=== PATIENT | male | born 1940 | race Caucasian/White ===

== ENCOUNTER 2017-01-04 06:40 | Day surgery (SDC) ==
[2017-01-04] MEDS ORDERED: LIDOCAINE 1% 20 ML MDV ID ONE (07:40)
[2017-01-04] MEDS ORDERED: VERSED ONE (09:21)
[2017-01-04] MEDS ORDERED: DIPRIVAN 20 ML VIAL IVP ONE (09:21)
[2017-01-04 10:45] VITALS: BP 123/75; TEMP 98.2
--- NOTE | 2017-01-05 09:44 | OP ---
INDICATIONS FOR PROCEDURE: 76-year-old gentleman presents for screening colonoscopy. MEDICATIONS: SEE ANESTHESIA NOTES. PROCEDURE: COLONOSCOPY, SNARE POLYPECTOMY. REPORT: The risks, benefits, alternatives and limitations were discussed in detail with the patient. Informed consent was obtained. After adequate sedation was achieved, a digital rectal exam revealed good tone, no masses. The colonoscope was introduced into the rectum and advanced under direct visual guidance to the cecum. The cecum was identified by the appendiceal orifice and IC valve. In the cecal area there were two polyps; one was about 6 mm and slightly raised and the other was about 7 to 8 mm and slightly raised, both removed by snare techinque and placed in the same pathology jar. I then slowly withdrew the scope in a circumferential manner examining the mucosa quite carefully. I looked on the proximal and distal side of folds and flexures as best as possible and I was able to retroflex the scope in the right colon and left colon to increase visualization. Scattered throughout the transverse colon there were three polyps ranging in size from 3 mm to 5 mm. These polyps were all removed by snare technique. The two smaller ones were destroyed. The slightly larger one was retrieved. The remaining colon appeared unremarkable including on retroflex view of the anal canal. The prep was good. The withdrawal time was 18 minutes and 19 seconds. The patient tolerated the procedure well with stable vital signs and pulse oximetry throughout. IMPRESSION: 1. FIVE (5) POLYPS REMOVED OR DESTROYED ABOVE. RECOMMENDATIONS: 1. High fiber diet. 2. Office visit as needed. 3. Await polyp pathology. If everything is benign, recommend repeat colonoscopy examination again in 3 years, sooner if signs or symptoms indicate otherwise. CC: DR. KIARA SEVILLA
== END 2017-01-04 11:00 | disposition home or self-care (01) ==
LOC: SURG 06:40
PROVIDERS: ATTEND Internal Medicine Gastroenterology
DX: Z12.11 Encounter for screening for malignant neoplasm of colon (principal); D12.0 Benign neoplasm of cecum; D12.3 Benign neoplasm of transverse colon; K63.5 Polyp of colon

== ENCOUNTER 2017-02-22 12:18 | Outpatient (CLI) ==
--- NOTE | 2017-02-22 13:01 | US ---
Exam: Jha-scale and color Doppler ultrasonographic evaluation of the right upper quadrant. Comparison: None available. Reason for exam: Elevated liver enzymes. FINDINGS: The liver measures approximately 11.26 cm in length and the 19.4 cm in the AP dimension wi th a hyperechoic echotexture. There is normal antegrade portal venous flow without intrahepatic ducta l dilatation or perihepatic free fluid. The common bile duct measures up to 0.65 cm. The gallbladder has been removed. The pancreas is not well seen secondary to overlying bowel gas. The right kidney measures 10.52 cm with a normal appearing echotexture, no hydronephrosis, and no nep hrolithiasis. Impression: Prominent appearing liver with a hyperechoic echotexture.
== END 2017-02-22 12:19 | disposition home or self-care (01) ==
LOC: RAD 12:18
PROVIDERS: ATTEND Family Medicine
DX: R74.8 Abnormal levels of other serum enzymes (principal)

== ENCOUNTER 2023-12-22 06:40 | Inpatient (IN) ==
--- NOTE | 2023-12-22 06:57 | ED.PDOC ---
General <TONIO RAMIREZ MD - Last Filed: 12/26/23 07:35> ED Provider: Dr. TONIO RAMIREZ MD Chief Complaint: Sore Throat Stated Complaint: Patient is an 83-year-old male that reported to the emergency department with a productive cough and a sore throat. Patient stated this has been going on for the past 2 days. Patient denies being around any other sick contacts other than his who has similar symptoms. Patient denied having any fever. Patient states that eating and drinking makes his throat worse. Patient denies anything making it better. Patient denies any shortness of breath, chest pain, nausea, vomiting, diarrhea, dizziness, syncope, or any other acute symptoms not currently mentioned in the HPI. Patient is alert and oriented to person, place, and time. Patient's vital signs are stable. Time Seen by Provider: 12/22/23 06:42 Mode of Arrival: Walk-In Information Source: Patient Exam Limitations: No limitations Primary Care Provider: ALISHA CRAIG Nursing and Triage Documentation Reviewed and Agree: Yes Does Patient Take Opioids?: No Is Patient Opioid Naive?: No What is Opioid Naive?: *Opioid Naive implies the patient is not already taking opioids or not chronically receiving opioids on a daily basis. *PRN dosing is not "usually" associated with tolerance. *Patients are at higher risk of over-sedation and aspiration. Is Patient Opioid Tolerant?: No What is Opioid Tolerant?: *Opioid Tolerance implies less than the expected response to an opioid. *Acquired tolerance is defined by the patient taking 60mg of oral morphine daily (or equianalgesic dose of another opioid) for 1 week or more. *Often associated with chronic pain. *May take more than usual dose to achieve desired pain control. Review of Systems <TONIO RAMIREZ MD - Last Filed: 12/26/23 07:35> Review Of Systems Constitutional: Reports No symptoms Eyes: Reports No symptoms Ears, Nose, Mouth, Throat: Reports Throat pain Respiratory: Reports Cough Cardiac: Reports No symptoms GI: Reports No symptoms : Reports No symptoms Musculoskeletal: Reports No symptoms Skin: Reports No symptoms Neurological: Reports No symptoms Endocrine: Reports No symptoms Hematologic/Lymphatic: Reports No symptoms All Other Systems: Reviewed and Negative PFSH <TONIO RAMIRZE MD - Last Filed: 12/26/23 07:35> Medical History Cataract H26.9 - Unspecified cataract (ICD-10) High prostate specific antigen (PSA) R97.20 - Elevated prostate specific antigen [PSA] (ICD-10) GERD (gastroesophageal reflux disease) K21.9 - Gastro-esophageal reflux disease without esophagitis (ICD-10) Kidney disease N28.9 - Disorder of kidney and ureter, unspecified (ICD-10) Hypothyroid E03.9 - Hypothyroidism, unspecified (ICD-10) Hypertension I10 - Essential (primary) hypertension (ICD-10) Family History FATHER Hypertension Mother Heart problem Social History Smoking and tobacco status: Former smoker Surgical History History of cholecystectomy Z98.89 - Other specified postprocedural states (ICD-10) Physical Exam <TONIO RAMIREZ MD - Last Filed: 12/26/23 07:35> Physical Exam Appearance: Reports Ill-appearing Ill-appearing: Mild Pain Distress: None Eyes: Reports OLIMPIA, EOMI and Conjunctiva clear ENT: Reports Nose normal and Erythema (Patient has erythematous posterior pharynx. No exudates noted.) Neck: Supple Respiratory: Reports Airway patent, Breath sounds equal, Respirations nonlabored and Crackles (Patient had crackles auscultated in the right lower lobe posteriorly.) Cardiovascular: Reports Pulses normal, No rub, No murmur and Tachycardia GI/: Reports Soft, Nontender, No masses, Bowel sounds normal and No Organomegaly Musculoskeletal: Reports Normal strength and ROM intact Skin: Reports Warm, Dry and Normal color Neurological: Reports Sensation intact, Motor intact, Cranial nerves intact, Alert and Oriented Psychiatric: Reports Affect appropriate and Mood appropriate Critical Care Note <TRINI MAR MD - Last Filed: 12/22/23 10:48> Critical Care Note Total Critical Care Time (mins): 30 Course <TONIO RAMIREZ MD - Last Filed: 12/26/23 07:35> Course 12/24/23 05:07 12/24/23 05:07 Orders, Labs, Meds: Lab Review 12/22/23 12/22/23 12/22/23 06:45 06:52 07:11 WBC 13.97 H RBC 4.98 Hgb 14.9 Hct 45.2 MCV 90.8 MCH 29.9 MCHC 33.0 RDW Coeff of Nixon 13.0 Plt Count 141 Immature Gran % (Auto) 0.4 Neut % (Auto) 74.9 Lymph % (Auto) 8.3 L [place] % (Auto) 16.2 H Eos % (Auto) 0.0 Baso % (Auto) 0.2 Neut # (Auto) 10.5 H Lymph # (Auto) 1.2 [place] # (Auto) 2.3 H Eos # (Auto) 0.0 Baso # (Auto) 0.0 Immature Gran # (Auto) 0.1 PT 10.6 INR 1.02 APTT 31.5 Puncture Site Base Excess O2 Saturation ABG pH ABG pCO2 ABG pO2 ABG HCO3 ABG Total CO2 Dean Test Hemoglobin Oxyhemoglobin Carboxyhemoglobin Total Hemoglobin FiO2 % Sodium 131.1 L Potassium 4.22 Chloride 98.1 Carbon Dioxide 22.1 Anion Gap 15.12 BUN 25.4 H Creatinine 1.10 Estimated GFR (MDRD) 64.00 BUN/Creatinine Ratio 23.09 Glucose 143.4 H Lactic Acid 1.44 Calcium 8.97 Magnesium 1.87 Total Bilirubin 0.80 AST 55.0 ALT 28.0 Alkaline Phosphatase 47.5 L Troponin I < 0.012 NT-Pro-B Natriuret Pep 517 H Total Protein 7.55 Albumin 4.55 Globulin 3.00 Albumin/Globulin Ratio 1.51 D-Dimer 742.39 H Urine Color Urine Clarity Urine pH Ur Specific [place] Urine Protein Urine Glucose (UA) Urine Ketones Urine Blood Urine Nitrite Urine Bilirubin Urine Urobilinogen Ur Leukocyte Esterase Urine Microscopic RBC Urine Microscopic WBC Ur Squamous Epith Cells Urine Bacteria Hyaline Casts Fine Granular Casts Urine Mucus Influ A Molecular Assay Negative by naat Influ B Molecular Assay Negative by naat SARS CoV-2 RNA Rapid ABILIO Positive H 12/22/23 12/22/23 07:27 08:10 WBC RBC Hgb Hct MCV MCH MCHC RDW Coeff of Nixon Plt Count Immature Gran % (Auto) Neut % (Auto) Lymph % (Auto) [place] % (Auto) Eos % (Auto) Baso % (Auto) Neut # (Auto) Lymph # (Auto) [place] # (Auto) Eos # (Auto) Baso # (Auto) Immature Gran # (Auto) PT INR APTT Puncture Site R rad Base Excess -1.2 O2 Saturation 91.6 L ABG pH 7.49 H ABG pCO2 29.0 L ABG pO2 57.0 L* ABG HCO3 22.1 ABG Total CO2 23.0 Dean Test Pos Hemoglobin 1.5 Oxyhemoglobin 92.6 L Carboxyhemoglobin 2.1 H Total Hemoglobin 14.4 FiO2 % 21.0 Sodium Potassium Chloride Carbon Dioxide Anion Gap BUN Creatinine Estimated GFR (MDRD) BUN/Creatinine Ratio Glucose Lactic Acid Calcium Magnesium Total Bilirubin AST ALT Alkaline Phosphatase Troponin I NT-Pro-B Natriuret Pep Total Protein Albumin Globulin Albumin/Globulin Ratio D-Dimer Urine Color Yellow Urine Clarity Clear Urine pH 5.5 Ur Specific [place] 1.025 Urine Protein Trace H Urine Glucose (UA) Negative Urine Ketones Trace H Urine Blood Trace-intact H Urine Nitrite Negative Urine Bilirubin Negative Urine Urobilinogen 0.2 Ur Leukocyte Esterase Negative Urine Microscopic RBC 10-20 Urine Microscopic WBC 5-10 Ur Squamous Epith Cells 0-2 Urine Bacteria 2+ Hyaline Casts 2-5 Fine Granular Casts 2-5 Urine Mucus 2+ Influ A Molecular Assay Influ B Molecular Assay SARS CoV-2 RNA Rapid ABILIO Orders Category Date Time Status ADMIT PATIENT INPATIENT .TO [facility] (MONITORED BED) ADMISSION 12/22/23 10:49 Completed ABG DRAW REQUEST Stat CARDIO 12/22/23 07:26 Completed EKG-(ED ONLY) Stat CARDIO 12/22/23 07:07 Completed NEBULIZER TREATMENT Stat CARDIO 12/22/23 07:30 Completed NEBULIZER TREATMENT Stat CARDIO 12/22/23 08:51 Completed NPO REMINDER: IMAGING ONCE CARE 12/22/23 07:06 Completed NPO REMINDER: IMAGING ONCE CARE 12/22/23 08:28 Completed TELEMETRY MONITORING TELE CARE 12/22/23 10:49 Completed Staffing Program Manager [ED REFERENCE SERVICES HEAD APPLIED] .ONCE EMERGENCY 12/22/23 07:30 Completed ABG COOX Stat LAB 12/22/23 07:27 Completed BLOOD CULTURE (ED ONLY) Stat LAB 12/22/23 07:31 Results CBC W/ AUTO DIFF Stat LAB 12/22/23 07:11 Completed CMP [COMPREHENSIVE METABOLIC PANEL] Stat LAB 12/22/23 07:11 Completed D-DIMER Stat LAB 12/22/23 07:11 Completed FLU A & B MOLECULAR [FLU A/B MOLECULAR] Stat LAB 12/22/23 06:45 Completed LACTIC ACID Stat LAB 12/22/23 07:11 Completed MAGNESIUM Stat LAB 12/22/23 07:11 Completed PROBNP ED [NT-PROBNP(ED)] Stat LAB 12/22/23 07:11 Completed PT WITH INR Stat LAB 12/22/23 07:11 Completed PTT [PARTIAL THROMBOPLASTIN TIME] Stat LAB 12/22/23 07:11 Completed RAPID STREP SCREEN [MOLECULAR GROUP A STREP] Stat LAB 12/22/23 06:45 Completed SARS COV-2 RNA RAPID ABILIO Stat LAB 12/22/23 06:52 Completed TROPONIN I Stat LAB 12/22/23 07:11 Completed URINALYSIS C & S IF INDICATED Stat LAB 12/22/23 08:10 Completed URINE CULTURE Stat LAB 12/22/23 08:10 Completed Acetaminophen [Tylenol] Meds 12/22/23 07:06 Discontinued 500 mg PO ONCE STA Dexamethasone Sod Phosphate [Decadron] Meds 12/22/23 07:53 Discontinued 6 mg IVP ONCE STA Ipratropium/Albuterol Neb [Duoneb] Meds 12/22/23 07:21 Discontinued 3 ml NEB .STK-MED ONE Ipratropium/Albuterol Neb [Duoneb] Meds 12/22/23 07:30 Discontinued 3 ml NEB ONCE STA Ipratropium/Albuterol Neb [Duoneb] Meds 12/22/23 08:51 Discontinued 3 ml NEB ONCE STA Levofloxacin/D5w [Levaquin 500 mg/100 ml D5w] Meds 12/22/23 07:44 Discontinued 500 mg in 100 ml IV ONCE Sodium Chloride 0.9% [Sodium Chloride] 1,000 ml Meds 12/22/23 06:59 Discontinued IV BOLUS Sodium Chloride 0.9% [Sodium Chloride] 1,000 ml Meds 12/22/23 08:41 Discontinued IV BOLUS CHEST, 1V AP ONLY Stat RADS 12/22/23 06:[address] SOFT TISSUE NECK W/WO CONT Stat RADS 12/22/23 08:28 Completed CTA CHEST PE PROTOCOL Stat RADS 12/22/23 08:28 Completed Medications Discontinued Medications Generic Name Dose Route Start Last Admin Trade Name Freq PRN Reason Stop Dose Admin Acetaminophen 500 mg 12/22/23 07:06 12/22/23 07:27 Acetaminophen 500 Mg Tablet PO 12/22/23 07:07 500 mg ONCE STA Administration Acetaminophen 650 mg 12/22/23 13:06 Acetaminophen 325 Mg Tablet PO Q4H PRN Mild Pain Albuterol Sulfate 2.5 mg 12/22/23 13:08 Albuterol Sulfate 0.083% Vial.Neb NEB RTQ4H PRN Wheezing Albuterol/Ipratropium 3 ml 12/22/23 07:30 12/22/23 07:39 Ipratropium/Albuterol Vial.Neb NEB 12/22/23 07:31 Not Given ONCE STA Albuterol/Ipratropium 3 ml 12/22/23 08:51 12/22/23 09:59 Ipratropium/Albuterol Vial.Neb NEB 12/22/23 08:52 3 ml ONCE STA Administration Albuterol/Ipratropium 3 ml 12/22/23 14:00 12/24/23 09:55 Ipratropium/Albuterol Vial.Neb NEB 3 ml RTQ4H NIRMAL Administration Amlodipine Besylate 10 mg 12/23/23 09:00 12/24/23 08:43 Amlodipine Besylate 5 Mg Tablet PO 10 mg DAILY NIRMAL Administration Aspirin 81 mg 12/23/23 07:30 12/24/23 08:43 Aspirin 81 Mg Tab.Chew PO 81 mg DAILYWM2 NIRMAL Administration Benazepril HCl 20 mg 12/23/23 09:00 12/24/23 08:44 Benazepril Hcl 10 Mg Tablet PO 20 mg DAILY NIRMAL Administration Dexamethasone Sodium Phosphate 6 mg 12/22/23 07:53 12/22/23 08:02 Dexamethasone Sod Phos 10 Mg/Ml Inj IVP 12/22/23 07:54 6 mg ONCE STA Administration Dexamethasone Sodium Phosphate 6 mg 12/23/23 09:00 12/24/23 08:42 Dexamethasone Sod Phos 10 Mg/Ml Inj IVP 6 mg DAILY NIRMAL Administration Enoxaparin Sodium 40 mg 12/23/23 09:00 12/24/23 08:44 Enoxaparin Sodium 40 Mg/0.4 Ml Syr SUBCUT 40 mg DAILY NIRMAL Administration Fish Oil 1,000 mg 12/23/23 09:00 12/24/23 08:43 [place]-3/Dha/Epa/Fish Oil 1,000 Mg Capsule PO 1,000 mg DAILY NIRMAL Administration Sodium Chloride 1,000 mls @ 1,000 mls/hr 12/22/23 06:59 12/22/23 09:32 Sodium Chloride IV 12/22/23 07:58 Infused BOLUS ONE Infusion Levofloxacin/Dextrose 500 mg in 100 mls @ 100 mls/hr 12/22/23 07:44 12/22/23 08:01 Levaquin 500 Mg/100 Ml D5w IV 12/22/23 08:43 100 mls/hr ONCE ONE Administration Sodium Chloride 1,000 mls @ 1,000 mls/hr 12/22/23 08:41 12/22/23 11:06 Sodium Chloride IV 12/22/23 09:40 Infused BOLUS ONE Infusion Levofloxacin/Dextrose 750 mg in 150 mls @ 100 mls/hr 12/23/23 09:00 12/24/23 09:54 Levaquin 750 Mg/150 Ml D5w IV 12/26/23 08:59 100 mls/hr DAILY NIRMAL Administration Remdesivir 200 mg/ Sodium 250 mls @ 250 mls/hr 12/22/23 15:25 12/22/23 16:56 Chloride IV 12/22/23 16:24 250 mls/hr ONCE ONE Administration Remdesivir 100 mg/ Sodium 100 mls @ 200 mls/hr 12/23/23 09:00 12/23/23 11:54 Chloride IV 12/26/23 09:29 Not Given DAILY NIRMAL Remdesivir 200 mg/ Sodium 250 mls @ 250 mls/hr 12/23/23 12:00 12/23/23 11:55 Chloride IV 12/23/23 12:59 250 mls/hr ONCE ONE Administration Remdesivir 100 mg/ Sodium 100 mls @ 200 mls/hr 12/24/23 09:00 12/24/23 08:43 Chloride IV 12/27/23 07:59 200 mls/hr DAILY NIRMAL Administration Insulin Human Regular 0 unit 12/22/23 13:10 12/23/23 20:52 Insulin Regular, Human 100 Unit/Ml (10ml) Vial SUBCUT 2 unit PRN PRN Administration Hyperglycemia Protocol Levothyroxine Sodium 75 mcg 12/23/23 06:00 12/24/23 06:24 Levothyroxine Sodium 75 Mcg Tablet PO 75 mcg QDAC2 NIRMAL Administration Pravastatin Sodium 40 mg 12/22/23 21:00 12/23/23 20:25 Pravastatin Sodium 40 Mg Tablet PO 40 mg BEDTIME NIRMAL Administration Sodium Chloride 1 syr 12/22/23 21:00 12/24/23 06:24 0.9% Sodium Chloride 10 Ml Disp.Syrin IVF 1 syr Q8HR NIRMAL Administration Vital Signs: Temp Pulse Resp BP Pulse Ox O2 Del Method O2 Flow Rate 12/22/23 10:26 Venturi Mask 10 12/22/23 09:26 96 Non-Rebreather 12 12/22/23 09:23 92 L Venturi Mask 8 12/22/23 09:15 92 L Venturi Mask 10 12/22/23 09:07 99.2 F 92 16 103/53 L 92 L 12/22/23 09:05 92 L Nasal Cannula 3 12/22/23 07:47 92 L Nasal Cannula 2 12/22/23 06:43 101 F H 127 H 22 H 122/73 88 L <TRINI MAR MD - Last Filed: 12/22/23 10:48> Course Orders, Labs, Meds: Lab Review 12/22/23 12/22/23 12/22/23 06:45 06:52 07:11 WBC 13.97 H RBC 4.98 Hgb 14.9 Hct 45.2 MCV 90.8 MCH 29.9 MCHC 33.0 RDW Coeff of Nixon 13.0 Plt Count 141 Immature Gran % (Auto) 0.4 Neut % (Auto) 74.9 Lymph % (Auto) 8.3 L [place] % (Auto) 16.2 H Eos % (Auto) 0.0 Baso % (Auto) 0.2 Neut # (Auto) 10.5 H Lymph # (Auto) 1.2 [place] # (Auto) 2.3 H Eos # (Auto) 0.0 Baso # (Auto) 0.0 Immature Gran # (Auto) 0.1 PT 10.6 INR 1.02 APTT 31.5 Puncture Site Base Excess O2 Saturation ABG pH ABG pCO2 ABG pO2 ABG HCO3 ABG Total CO2 Dean Test Hemoglobin Oxyhemoglobin Carboxyhemoglobin Total Hemoglobin FiO2 % Sodium 131.1 L Potassium 4.22 Chloride 98.1 Carbon Dioxide 22.1 Anion Gap 15.12 BUN 25.4 H Creatinine 1.10 Estimated GFR (MDRD) 64.00 BUN/Creatinine Ratio 23.09 Glucose 143.4 H Lactic Acid 1.44 Calcium 8.97 Magnesium 1.87 Total Bilirubin 0.80 AST 55.0 ALT 28.0 Alkaline Phosphatase 47.5 L Troponin I < 0.012 NT-Pro-B Natriuret Pep 517 H Total Protein 7.55 Albumin 4.55 Globulin 3.00 Albumin/Globulin Ratio 1.51 D-Dimer 742.39 H Urine Color Urine Clarity Urine pH Ur Specific [place] Urine Protein Urine Glucose (UA) Urine Ketones Urine Blood Urine Nitrite Urine Bilirubin Urine Urobilinogen Ur Leukocyte Esterase Urine Microscopic RBC Urine Microscopic WBC Ur Squamous Epith Cells Urine Bacteria Hyaline Casts Fine Granular Casts Urine Mucus Influ A Molecular Assay Negative by naat Influ B Molecular Assay Negative by naat SARS CoV-2 RNA Rapid ABILIO Positive H 12/22/23 12/22/23 07:27 08:10 WBC RBC Hgb Hct MCV MCH MCHC RDW Coeff of Nixon Plt Count Immature Gran % (Auto) Neut % (Auto) Lymph % (Auto) [place] % (Auto) Eos % (Auto) Baso % (Auto) Neut # (Auto) Lymph # (Auto) [place] # (Auto) Eos # (Auto) Baso # (Auto) Immature Gran # (Auto) PT INR APTT Puncture Site R rad Base Excess -1.2 O2 Saturation 91.6 L ABG pH 7.49 H ABG pCO2 29.0 L ABG pO2 57.0 L* ABG HCO3 22.1 ABG Total CO2 23.0 Dean Test Pos Hemoglobin 1.5 Oxyhemoglobin 92.6 L Carboxyhemoglobin 2.1 H Total Hemoglobin 14.4 FiO2 % 21.0 Sodium Potassium Chloride Carbon Dioxide Anion Gap BUN Creatinine Estimated GFR (MDRD) BUN/Creatinine Ratio Glucose Lactic Acid Calcium Magnesium Total Bilirubin AST ALT Alkaline Phosphatase Troponin I NT-Pro-B Natriuret Pep Total Protein Albumin Globulin Albumin/Globulin Ratio D-Dimer Urine Color Yellow Urine Clarity Clear Urine pH 5.5 Ur Specific [place] 1.025 Urine Protein Trace H Urine Glucose (UA) Negative Urine Ketones Trace H Urine Blood Trace-intact H Urine Nitrite Negative Urine Bilirubin Negative Urine Urobilinogen 0.2 Ur Leukocyte Esterase Negative Urine Microscopic RBC 10-20 Urine Microscopic WBC 5-10 Ur Squamous Epith Cells 0-2 Urine Bacteria 2+ Hyaline Casts 2-5 Fine Granular Casts 2-5 Urine Mucus 2+ Influ A Molecular Assay Influ B Molecular Assay SARS CoV-2 RNA Rapid AIBLIO Orders Category Date Time Status ADMIT PATIENT INPATIENT .TO [facility] (MONITORED BED) ADMISSION 12/22/23 10:49 Completed ABG DRAW REQUEST Stat CARDIO 12/22/23 07:26 Completed EKG-(ED ONLY) Stat CARDIO 12/22/23 07:07 Completed NEBULIZER TREATMENT Stat CARDIO 12/22/23 07:30 Completed NEBULIZER TREATMENT Stat CARDIO 12/22/23 08:51 Completed NPO REMINDER: IMAGING ONCE CARE 12/22/23 07:06 Completed NPO REMINDER: IMAGING ONCE CARE 12/22/23 08:28 Completed TELEMETRY MONITORING TELE CARE 12/22/23 10:49 Completed Staffing Program Manager [ED REFERENCE SERVICES HEAD APPLIED] .ONCE EMERGENCY 12/22/23 07:30 Completed ABG COOX Stat LAB 12/22/23 07:27 Completed BLOOD CULTURE (ED ONLY) Stat LAB 12/22/23 07:31 Results CBC W/ AUTO DIFF Stat LAB 12/22/23 07:11 Completed CMP [COMPREHENSIVE METABOLIC PANEL] Stat LAB 12/22/23 07:11 Completed D-DIMER Stat LAB 12/22/23 07:11 Completed FLU A & B MOLECULAR [FLU A/B MOLECULAR] Stat LAB 12/22/23 06:45 Completed LACTIC ACID Stat LAB 12/22/23 07:11 Completed MAGNESIUM Stat LAB 12/22/23 07:11 Completed PROBNP ED [NT-PROBNP(ED)] Stat LAB 12/22/23 07:11 Completed PT WITH INR Stat LAB 12/22/23 07:11 Completed PTT [PARTIAL THROMBOPLASTIN TIME] Stat LAB 12/22/23 07:11 Completed RAPID STREP SCREEN [MOLECULAR GROUP A STREP] Stat LAB 12/22/23 06:45 Completed SARS COV-2 RNA RAPID ABILIO Stat LAB 12/22/23 06:52 Completed TROPONIN I Stat LAB 12/22/23 07:11 Completed URINALYSIS C & S IF INDICATED Stat LAB 12/22/23 08:10 Completed URINE CULTURE Stat LAB 12/22/23 08:10 Completed Acetaminophen [Tylenol] Meds 12/22/23 07:06 Discontinued 500 mg PO ONCE STA Dexamethasone Sod Phosphate [Decadron] Meds 12/22/23 07:53 Discontinued 6 mg IVP ONCE STA Ipratropium/Albuterol Neb [Duoneb] Meds 12/22/23 07:21 Discontinued 3 ml NEB .STK-MED ONE Ipratropium/Albuterol Neb [Duoneb] Meds 12/22/23 07:30 Discontinued 3 ml NEB ONCE STA Ipratropium/Albuterol Neb [Duoneb] Meds 12/22/23 08:51 Discontinued 3 ml NEB ONCE STA Levofloxacin/D5w [Levaquin 500 mg/100 ml D5w] Meds 12/22/23 07:44 Discontinued 500 mg in 100 ml IV ONCE Sodium Chloride 0.9% [Sodium Chloride] 1,000 ml Meds 12/22/23 06:59 Discontinued IV BOLUS Sodium Chloride 0.9% [Sodium Chloride] 1,000 ml Meds 12/22/23 08:41 Discontinued IV BOLUS CHEST, 1V AP ONLY Stat RADS 12/22/23 06:[address] SOFT TISSUE NECK W/WO CONT Stat RADS 12/22/23 08:28 Completed CTA CHEST PE PROTOCOL Stat RADS 12/22/23 08:28 Completed Medications Discontinued Medications Generic Name Dose Route Start Last Admin Trade Name Freq PRN Reason Stop Dose Admin Acetaminophen 500 mg 12/22/23 07:06 12/22/23 07:27 Acetaminophen 500 Mg Tablet PO 12/22/23 07:07 500 mg ONCE STA Administration Acetaminophen 650 mg 12/22/23 13:06 Acetaminophen 325 Mg Tablet PO Q4H PRN Mild Pain Albuterol Sulfate 2.5 mg 12/22/23 13:08 Albuterol Sulfate 0.083% Vial.Neb NEB RTQ4H PRN Wheezing Albuterol/Ipratropium 3 ml 12/22/23 07:30 12/22/23 07:39 Ipratropium/Albuterol Vial.Neb NEB 12/22/23 07:31 Not Given ONCE STA Albuterol/Ipratropium 3 ml 12/22/23 08:51 12/22/23 09:59 Ipratropium/Albuterol Vial.Neb NEB 12/22/23 08:52 3 ml ONCE STA Administration Albuterol/Ipratropium 3 ml 12/22/23 14:00 12/24/23 09:55 Ipratropium/Albuterol Vial.Neb NEB 3 ml RTQ4H NIRMAL Administration Amlodipine Besylate 10 mg 12/23/23 09:00 12/24/23 08:43 Amlodipine Besylate 5 Mg Tablet PO 10 mg DAILY NIRMAL Administration Aspirin 81 mg 12/23/23 07:30 12/24/23 08:43 Aspirin 81 Mg Tab.Chew PO 81 mg DAILYWM2 NIRMAL Administration Benazepril HCl 20 mg 12/23/23 09:00 12/24/23 08:44 Benazepril Hcl 10 Mg Tablet PO 20 mg DAILY NIRMAL Administration Dexamethasone Sodium Phosphate 6 mg 12/22/23 07:53 12/22/23 08:02 Dexamethasone Sod Phos 10 Mg/Ml Inj IVP 12/22/23 07:54 6 mg ONCE STA Administration Dexamethasone Sodium Phosphate 6 mg 12/23/23 09:00 12/24/23 08:42 Dexamethasone Sod Phos 10 Mg/Ml Inj IVP 6 mg DAILY NIRMAL Administration Enoxaparin Sodium 40 mg 12/23/23 09:00 12/24/23 08:44 Enoxaparin Sodium 40 Mg/0.4 Ml Syr SUBCUT 40 mg DAILY NIRMAL Administration Fish Oil 1,000 mg 12/23/23 09:00 12/24/23 08:43 [place]-3/Dha/Epa/Fish Oil 1,000 Mg Capsule PO 1,000 mg DAILY NIRMAL Administration Sodium Chloride 1,000 mls @ 1,000 mls/hr 12/22/23 06:59 12/22/23 09:32 Sodium Chloride IV 12/22/23 07:58 Infused BOLUS ONE Infusion Levofloxacin/Dextrose 500 mg in 100 mls @ 100 mls/hr 12/22/23 07:44 12/22/23 08:01 Levaquin 500 Mg/100 Ml D5w IV 12/22/23 08:43 100 mls/hr ONCE ONE Administration Sodium Chloride 1,000 mls @ 1,000 mls/hr 12/22/23 08:41 12/22/23 11:06 Sodium Chloride IV 12/22/23 09:40 Infused BOLUS ONE Infusion Levofloxacin/Dextrose 750 mg in 150 mls @ 100 mls/hr 12/23/23 09:00 12/24/23 09:54 Levaquin 750 Mg/150 Ml D5w IV 12/26/23 08:59 100 mls/hr DAILY NIRMAL Administration Remdesivir 200 mg/ Sodium 250 mls @ 250 mls/hr 12/22/23 15:25 12/22/23 16:56 Chloride IV 12/22/23 16:24 250 mls/hr ONCE ONE Administration Remdesivir 100 mg/ Sodium 100 mls @ 200 mls/hr 12/23/23 09:00 12/23/23 11:54 Chloride IV 12/26/23 09:29 Not Given DAILY NIRMAL Remdesivir 200 mg/ Sodium 250 mls @ 250 mls/hr 12/23/23 12:00 12/23/23 11:55 Chloride IV 12/23/23 12:59 250 mls/hr ONCE ONE Administration Remdesivir 100 mg/ Sodium 100 mls @ 200 mls/hr 12/24/23 09:00 12/24/23 08:43 Chloride IV 12/27/23 07:59 200 mls/hr DAILY NIRMAL Administration Insulin Human Regular 0 unit 12/22/23 13:10 12/23/23 20:52 Insulin Regular, Human 100 Unit/Ml (10ml) Vial SUBCUT 2 unit PRN PRN Administration Hyperglycemia Protocol Levothyroxine Sodium 75 mcg 12/23/23 06:00 12/24/23 06:24 Levothyroxine Sodium 75 Mcg Tablet PO 75 mcg QDAC2 NIRMAL Administration Pravastatin Sodium 40 mg 12/22/23 21:00 12/23/23 20:25 Pravastatin Sodium 40 Mg Tablet PO 40 mg BEDTIME NIRMAL Administration Sodium Chloride 1 syr 12/22/23 21:00 12/24/23 06:24 0.9% Sodium Chloride 10 Ml Disp.Syrin IVF 1 syr Q8HR NIRMAL Administration Vital Signs: Temp Pulse Resp BP Pulse Ox O2 Del Method O2 Flow Rate 12/22/23 10:26 Venturi Mask 12/22/23 09:26 96 Non-Rebreather 12 12/22/23 09:23 92 L Venturi Mask 8 12/22/23 09:15 92 L Venturi Mask 10 12/22/23 09:07 99.2 F 92 16 103/53 L 92 L 12/22/23 09:05 92 L Nasal Cannula 3 12/22/23 07:47 92 L Nasal Cannula 2 12/22/23 06:43 101 F H 127 H 22 H 122/73 88 L Discharge Plan Discharge Patient Disposition: ADMITTED INPATIENT Discharge Problem: Pneumonia due to 2019-nCoV Urinary tract infection Qualifiers: Urinary tract infection type: acute cystitis Hematuria presence: with hematuria Qualified Code(s): N30.01 - Acute cystitis with hematuria Did you review [place] [employer] for ALL controlled substances?: Not Applicable ED Provider: TRINI MAR Condition: Stable <TONIO RAMIREZ MD - Last Filed: 12/26/23 07:35> Physician Progress Note: Patient is an 83-year-old male that reported to the emergency department with a productive cough and a sore throat. Patient stated this has been going on for the past 2 days. Patient denies being around any other sick contacts other than his who has similar symptoms. Patient denied having any fever. Patient states that eating and drinking makes his throat worse. Patient denies anything making it better. Patient denies any shortness of breath, chest pain, nausea, vomiting, diarrhea, dizziness, syncope, or any other acute symptoms not currently mentioned in the HPI. Patient is alert and oriented to person, place, and time. Patient's vital signs are stable. -Will order chest x-ray, flu test, COVID test, strep test, and baseline labs. -Will give the patient IV normal saline 1 L bolus for dehydration. -(0700) this patient's care has been endorsed to Dr. Mar. At the time of endorsement patient's vital signs were stable. Sepsis protocol has been initiated. Patient is pending labs, chest x-ray, CT soft tissue neck, and treatment. <TRINI MRA MD - Last Filed: 12/22/23 10:48> Physician Progress Note: Patient is an 83-year-old male that reported to the emergency department with a productive cough and a sore throat. Patient stated this has been going on for the past 2 days. Patient denies being around any other sick contacts other than his who has similar symptoms. Patient denied having any fever. Patient states that eating and drinking makes his throat worse. Patient denies anything making it better. Patient denies any shortness of breath, chest pain, nausea, vomiting, diarrhea, dizziness, syncope, or any other acute symptoms not currently mentioned in the HPI. Patient is alert and oriented to person, place, and time. Patient's vital signs are stable. -Will order chest x-ray, flu test, COVID test, strep test, and baseline labs. -Will give the patient IV normal saline 1 L bolus for dehydration. -(0700) this patient's care has been endorsed to Dr. Mar. At the time of endorsement patient's vital signs were stable. Sepsis protocol has been initiated. Patient is pending labs, chest x-ray, CT soft tissue neck, and treatment. 0700-patient care endorsed to service Dr. Mar Physical examination Mouth moist buccal Koza posterior pharynx without hypertrophy angioedema erythema airways patent no stridor noted. Chest clear breath sounds several occasional right upper sternal aspiratory wheeze noted. There are diminished breath sounds at the bases. Heart is regular tachycardia normal limits 2. Abdomen soft active bowel sounds nontender palp mass noted. Extremities peripheral pulses 2+. Neuro examination patient alert and appropriate and reflexes mostly physical. 0717-EKG interpretation by myself consistent with sinus tachycardia rate of 100 with right axis deviation. There is evidence of respiratory difficulty. Patient placed on the sepsis protocol 73 kg / 30 mL, 1 L bolus per hour x 2. Arterial blood gas room air the pO2 of 57 saturation 90%, patient placed on 2 L of oxygen After 2 sets of blood cultures patient ministered Levaquin 500 mg IV piggyback DuoNeb aerosol treatment x 1 Patient placed on a Ventimask 50% maintaining the pulse oximetry 99% Portable chest x-ray interpretation by the radiologist shows no acute cardiopulmonary process. 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 The chest CTA IV contrast rotation per radiologist consistent no evidence of pulm embolism debris's in the right bronchus intermedius and right lower lobe bronchus with right lower lobe posterior basal atelectasis and or pneumonia. Differential diagnosis: 1) COVID pneumonia 2) hypoxia 3) urinary tract infection Discussed with hospitalist Romeo Mcgarry at 1045 for admission
[2023-12-22 07:10] LABS: SARS COV-2 RNA RAPID NAAT POSITIVE (NEGATIVE)
[2023-12-22 07:16] LABS: BASOPHILS % (AUTO) 0.2 % (0.0-3.0); HEMATOCRIT 45.2 % (42.0-52.0); HEMOGLOBIN 14.9 g/dl (14.0-18.0); IMMATURE GRANULOCYTE # (AUTO) 0.1 (0.0-1.0); IMMATURE GRANULOCYTE % (AUTO) 0.4 % (0.0-5.0); LYMPHOCYTES # (AUTO) 1.2 K/uL (0.60-3.4); LYMPHOCYTES % (AUTO) 8.3 (10.0-50.0); MEAN CORPUSCULAR HEMOGLOBIN 29.9 pg (27.0-31.0); MEAN CORPUSCULAR VOLUME 90.8 fl (80.0-94.0); MONOCYTES # (AUTO) 2.3 K/uL (0.4-2.0); MONOCYTES % (AUTO) 16.2 (0-10); NEUTROPHILS # (AUTO) 10.5 K/ul (2.0-6.9); NEUTROPHILS % (AUTO) 74.9 % (42.2-75.2); PLATELET COUNT 141 10^3/uL (140-440); RED BLOOD COUNT 4.98 10^6/ul (4.70-6.10); WHITE BLOOD COUNT 13.97 K/ul (4.2-10.2)
[2023-12-22] MEDS: SODIUM CHLORIDE 1,000 ML IV ONE ×2 (07:18→08:59)
--- NOTE | 2023-12-22 07:19 | DI ---
EXAM: CHEST RADIOGRAPH TECHNIQUE: Single frontal chest radiograph. HISTORY: Cold symptoms. COMPARISON: None. FINDINGS: Calcified granuloma of the left mid lung. No pulmonary infiltrate is identified. No pleural effusion or pneumothorax is seen. Heart size is normal. No acute displaced rib fractures are identified. IMPRESSION: 1. No acute findings in the chest.
[2023-12-22 07:21] LABS: MOLECULAR FLU A NEGATIVE BY NAAT (NEGATIVE); MOLECULAR FLU B NEGATIVE BY NAAT (NEGATIVE)
[2023-12-22] MEDS: TYLENOL PO STA (07:27)
[2023-12-22 07:29] LABS: ALBUMIN 4.55 g/dL (3.5-5.0); ALKALINE PHOSPHATASE 47.5 U/L (56-119); BLOOD UREA NITROGEN 25.4 mg/dL (9-20); CALCIUM 8.97 mg/dL (8.4-10.2); CARBON DIOXIDE 22.1 mmol/L (22-30.0); CHLORIDE 98.1 mmol/L (98-107); GLUCOSE 143.4 mg/dL (74-106); MAGNESIUM 1.87 mg/dL (1.6-2.3); POTASSIUM 4.22 mmol/L (3.5-5.1); SODIUM 131.1 mmol/L (134.5-145); TOTAL PROTEIN 7.55 g/dL (6.3-8.2)
[2023-12-22] MEDS: DUONEB NEB ONE (07:38)
[2023-12-22] MEDS: DUONEB NEB STA ×2 (07:39→09:59)
[2023-12-22 07:40] LABS: ABG O2 HGB 92.6 % (95-100); ABG PH 7.49 (7.35-7.45); BEecf -1.2 (-2.0-3.0); COHb 2.1 (0.5-1.5); HCO3 22.1 (21-28); MetHb 1.5 (0-1.5); sO2 91.6 % (94-98); tHb 14.4 g/dl (11.7-17.4)
[2023-12-22 07:48] LABS: PARTIAL THROMBOPLASTIN TIME 31.5 SEC (23.9-40.0); PROTHROMBIN TIME 10.6 SEC (9.3-11.0); TROPONIN I < 0.012 ng/ml (0.0000-0.120)
[2023-12-22] MEDS: LEVAQUIN 500 MG/100 ML D5W 500 MG/100 ML BAG IV ONE (08:01)
[2023-12-22] MEDS: DECADRON IVP STA (08:02)
[2023-12-22 09:04] LABS: BILIRUBIN,URINE Negative (NEGATIVE); CLARITY,URINE Clear (CLEAR); COLOR,URINE Yellow (YELLOW); GLUCOSE, URINE (UA) Negative (NEGATIVE); KETONES,URINE Trace (NEGATIVE); LEUKOCYTE ESTERASE ,URINE Negative (NEGATIVE); NITRITE,URINE Negative (NEGATIVE); PH,URINE 5.5 (5-9); PROTEIN,URINE Trace (NEGATIVE); URINE, BLOOD Trace-intact (NEGATIVE); UROBILINOGEN,URINE 0.2 (0.2)
[2023-12-22 09:14] LABS: BACTERIA,URINE 2+ (NOT PRESENT); SQUAMOUS EPITHELIAL CELL,UR 0-2 (0-5)
[2023-12-22 09:15] LABS: MUCUS,URINE 2+ (NOT PRESENT)
--- NOTE | 2023-12-22 10:32 | CT ---
EXAM: CT SOFT TISSUE NECK WITH AND WITHOUT CONTRAST. HISTORY: Difficulty swallowing. COMPARISON: None. TECHNIQUE: Multiple axial images of the neck were obtained prior to and following intravenous admini stration of 100 mL Omnipaque 350, low osmolar. Images were reformatted in the sagittal and coronal p lanes. FINDINGS: The parotid and submandibular glands demonstrate no focal abnormality. There is no localized pharyngeal abnormality. The epiglottis and laryngeal structures appear normal. Airway normal in caliber. Thyroid gland normal. No subcutaneous edema or fluid collection identified. No lymphadenopathy is seen. Calcifications present in the right greater than left carotid arteries with occlusion of the right in ternal carotid artery from its origin with reconstitution at the level of the carotid canal. Jugular veins are patent. There is no acute abnormality in the lung apices. Refer to same day chest CT report for details. Vi sualized portions of the esophagus appear normal. Degenerative changes present in the spine and left temporomandibular joint. No acute acute osseous a bnormality identified. The included intracranial and intraorbital structures demonstrate no acute abnormality. Paranasal si nuses and mastoid air cells are clear. IMPRESSION: 1. No acute abnormality of the neck. 2. 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 All CT scans are performed using dose optimization techniques as appropriate to the performed exam an d include at least one of the following: Automated exposure control, adjustment of the mA and/or kV according t o size, and the use of iterative reconstruction technique.
--- NOTE | 2023-12-22 10:37 | CT ---
EXAM: CT ANGIOGRAM CHEST. HISTORY: Dyspnea. Elevated D-dimer. Difficulty swallowing. COMPARISON: None. TECHNIQUE: Multiple axial images of the chest were obtained following intravenous administration of 100 mL Omnipaque 350, low osmolar. Images were reformatted in the sagittal and coronal plane. 3-D a nd maximum intensity projection reformatted images were created on an independent workstation. FINDINGS: There is no pulmonary arterial filling defect. Heart is at the upper limits normal in siz e. Coronary artery and aortic calcifications present but there is no aortic dissection. There are calcified and noncalcified mediastinal and hilar lymph nodes. The largest noncalcified lym ph node measures 1.3 cm short axis subcarinal region series 7 image 103 1.6 cm right hilum image 111. There is debris within the bronchus intermedius extending into right lower lobe branches with some di stal consolidation in the posterior basal right lower lobe. Mild dependent ground-glass opacities pr esent in the right middle lobe. Calcified granulomatous changes noted. There is no pleural effusion or pneumothorax. No focal esophageal abnormality identified. There is a small hiatal hernia. Appears to severe left hydronephrosis which is incompletely imaged. The gallbladder is absent. Degenerative changes present in the spine. IMPRESSION: 1. No pulmonary embolus. 2. Debris in the right bronchus intermedius and right lower lobe bronchi with right lower lobe poste robasal atelectasis or pneumonia. Correlate for aspiration. 3. Mediastinal and hilar lymphadenopathy which could be due to #2 above. Follow-up recommended. 4. Atherosclerosis. 5. Suspect severe left hydronephrosis. Dedicated abdominal imaging is recommended. All CT scans are performed using dose optimization techniques as appropriate to the performed exam an d include at least one of the following: Automated exposure control, adjustment of the mA and/or kV according t o size, and the use of iterative reconstruction technique.
[2023-12-22 12:07] VITALS: BMI 22.5
[2023-12-22] MEDS ORDERED: TYLENOL PO PRN (13:06)
[2023-12-22] MEDS ORDERED: ALBUTEROL 0.083% NEB NEB PRN (13:08)
[2023-12-22] MEDS: DUONEB NEB SCH (14:34)
--- NOTE | 2023-12-22 16:35 | PCM ---
Date of Service Date Seen by Provider: 12/22/23 Admit Day/Time Admission Date: 12/22/23 Reason for Admission Chief Complaint: COVID PNEUMONIA, UTI Hospital Provider Hospital Provider: ELAINE COHEN, [facility] [place] Primary Care Physician Primary Care Physician: VALENTE EDWARDS History of Present Illness History of Present Illness: 83 yo male presented to the ER with weakness, sore throat, and fatigue that started on Tuesday and has progressively worsened. Patient reports that this morning when he woke up he knew something wasn't right and he needed to get checked out. Denies any fever that he is aware of. Reports being very fatigued and intermittent sore throat. Denies any difficulty breathing, chest or back pain, dizziness, n/v/d. Patient was found to be covid-19 positive in addition to a UTI and R lower lobe pneumonia. CT questionable for aspiration. Patient denied any choking episodes or significant difficulty swallowing. O2 sat was dropping significantly and required venturi mask up to 10L of oxygen in the ER. On arrival to the floor he was down to 6L. Admitted to med/surg inpatient. Case Discussed With Case Discussed With: Patient's case was discussed with the ER Physicians, Dr. Mar. [facility] Medical History Cataract H26.9 - Unspecified cataract (ICD-10) High prostate specific antigen (PSA) R97.20 - Elevated prostate specific antigen [PSA] (ICD-10) GERD (gastroesophageal reflux disease) K21.9 - Gastro-esophageal reflux disease without esophagitis (ICD-10) Kidney disease N28.9 - Disorder of kidney and ureter, unspecified (ICD-10) Hypothyroid E03.9 - Hypothyroidism, unspecified (ICD-10) Hypertension I10 - Essential (primary) hypertension (ICD-10) Surgical History History of cholecystectomy Z98.89 - Other specified postprocedural states (ICD-10) Family History FATHER Hypertension Mother Heart problem Social History Smoking and tobacco status: Former smoker Allergies Allergies Allergy/AdvReac Type Severity Reaction Status Date / Time No Known Allergies Allergy Verified 12/22/23 06:45 Current Medications Home Medications amlodipine 10 mg-benazepril 20 mg capsule 1 ea PO DAILY 12/31/16 [History Confirmed 12/22/23 Last Taken 12/21/23] levothyroxine 75 mcg tablet (Synthroid) 75 mcg PO DAILY 12/31/16 [History Confirmed 12/22/23 Last Taken 12/21/23] pravastatin 40 mg tablet 40 mg PO BEDTIME 12/31/16 [History Confirmed 12/22/23 Last Taken 12/21/23] aspirin 81 mg chewable tablet 81 mg PO DAILY 04/03/19 [History Confirmed 12/22/23 Last Taken 12/21/23] multivitamin 5 ml PO DAILY 04/03/19 [History Confirmed 12/22/23 Last Taken Unknown] omega 6-qhb-oqa-fish oil 1,000 mg (120 mg-180 mg) capsule (Fish Oil) 1 cap PO DAILY 04/03/19 [History Confirmed 12/22/23 Last Taken 12/21/23] metformin 500 mg tablet 500 mg PO 2XD 12/22/23 [History Confirmed 12/22/23 Last Taken 12/21/23] Home Acetaminophen (Acetaminophen 325 Mg Tablet) 650 mg PO Q4H PRN PRN Reason: Mild Pain Albuterol Sulfate (Albuterol Sulfate 0.083% Vial.Neb) 2.5 mg NEB RTQ4H PRN PRN Reason: Wheezing Albuterol/Ipratropium (Ipratropium/Albuterol Vial.Neb) 3 ml NEB RTQ4H NIRMAL Last Admin: 12/22/23 14:34 Dose: 3 ml Amlodipine Besylate (Amlodipine Besylate 5 Mg Tablet) 10 mg PO DAILY NIRMAL Aspirin (Aspirin 81 Mg Tab.Chew) 81 mg PO DAILYWM2 NIRMAL Benazepril HCl (Benazepril Hcl 10 Mg Tablet) 20 mg PO DAILY NIRMAL Dexamethasone Sodium Phosphate (Dexamethasone Sod Phos 10 Mg/Ml Inj) 6 mg IVP DAILY NIRMAL Enoxaparin Sodium (Enoxaparin Sodium 40 Mg/0.4 Ml Syr) 40 mg SUBCUT DAILY [facility] Fish Oil ([place]-3/Dha/Epa/Fish Oil 1,000 Mg Capsule) 1,000 mg PO DAILY NIRMAL Levofloxacin/Dextrose (Levaquin 750 Mg/150 Ml D5w) 750 mg in 150 mls @ 100 mls/hr IV DAILY NIRMAL Stop: 12/26/23 08:59 Remdesivir 100 mg/ Sodium (Chloride) 100 mls @ 200 mls/hr IV DAILY NIRMAL Stop: 12/26/23 09:29 Insulin Human Regular (Insulin Regular, Human 100 Unit/Ml (10ml) Vial) 0 unit SUBCUT PRN PRN; Protocol PRN Reason: Hyperglycemia Levothyroxine Sodium (Levothyroxine Sodium 75 Mcg Tablet) 75 mcg PO QDAC2 NIRMAL Pravastatin Sodium (Pravastatin Sodium 40 Mg Tablet) 40 mg PO BEDTIME NIRMAL Discontinued Medications Acetaminophen (Acetaminophen 500 Mg Tablet) 500 mg PO ONCE STA Stop: 12/22/23 07:07 Last Admin: 12/22/23 07:27 Dose: 500 mg Albuterol/Ipratropium (Ipratropium/Albuterol Vial.Neb) 3 ml NEB ONCE STA Stop: 12/22/23 07:31 Last Admin: 12/22/23 07:39 Dose: Not Given Albuterol/Ipratropium (Ipratropium/Albuterol Vial.Neb) 3 ml NEB ONCE STA Stop: 12/22/23 08:52 Last Admin: 12/22/23 09:59 Dose: 3 ml Dexamethasone Sodium Phosphate (Dexamethasone Sod Phos 10 Mg/Ml Inj) 6 mg IVP ONCE STA Stop: 12/22/23 07:54 Last Admin: 12/22/23 08:02 Dose: 6 mg Sodium Chloride (Sodium Chloride) 1,000 mls @ 1,000 mls/hr IV BOLUS ONE Stop: 12/22/23 07:58 Last Infusion: 12/22/23 09:32 Dose: Infused Levofloxacin/Dextrose (Levaquin 500 Mg/100 Ml D5w) 500 mg in 100 mls @ 100 mls/hr IV ONCE ONE Stop: 12/22/23 08:43 Last Admin: 12/22/23 08:01 Dose: 100 mls/hr Sodium Chloride (Sodium Chloride) 1,000 mls @ 1,000 mls/hr IV BOLUS ONE Stop: 12/22/23 09:40 Last Infusion: 12/22/23 11:06 Dose: Infused Remdesivir 200 mg/ Sodium (Chloride) 250 mls @ 250 mls/hr IV ONCE ONE Stop: 12/22/23 16:24 Opioid Naive vs. Tolerant Does Patient Take Opioids?: No Is Patient Opioid Naive?: Yes What is Opioid Naive?: *Opioid Naive implies the patient is not already taking opioids or not c hronically receiving opioids on a daily basis. *PRN dosing is not "usually" associated with tolerance. *Patients are at higher risk of over-sedation and aspiration. Is Patient Opioid Tolerant?: No What is Opioid Tolerant?: *Opioid Tolerance implies less than the expected response to an opioid. *Acquired tolerance is defined by the patient taking 60mg of oral morphine daily (or equianalgesic dose of another opioid) for 1 week or more. *Often associated with chronic pain. *May take more than usual dose to achieve desired pain control. Review of Systems Constitutional: Reports Fatigue and Weakness Head: Reports Normocephalic Eyes: Reports No symptoms Ears: Reports No symptoms Nose: Reports No symptoms Mouth: Reports No symptoms Throat: Reports Sore Throat Cardiovascular: Reports No symptoms Respiratory: Reports No symptoms Gastrointestinal: Reports No symptoms Genitourinary: Reports No Symptoms Musculoskeletal: Reports No symptoms Endocrine: Reports No symptoms Hematology: Reports No symptoms Immunology: Reports No symptoms Neurological: Reports No symptoms Psychiatric: Reports No symptoms Physical examination Most Recent Vital Signs: Most Recent Vital Signs Temperature 99 F 12/22/23 14:00 Temperature Source Temporal Artery Scan 12/22/23 14:00 Temperature Source Temporal Artery Scan 12/22/23 09:07 Pulse Rate 81 12/22/23 14:00 Respiratory Rate 17 12/22/23 14:00 Blood Pressure 119/78 12/22/23 14:00 Blood Pressure Mean 91 12/22/23 14:00 Blood Pressure Left Arm 123/69 12/22/23 11:45 Blood Pressure Location Left Arm 12/22/23 14:00 Blood Pressure Position Sitting 12/22/23 14:00 O2 Sat by Pulse Oximetry 98 12/22/23 14:32 Oxygen Delivery Method Nasal Cannula 12/22/23 14:32 Oxygen Flow Rate 4 12/22/23 14:32 Fraction of Inspired Oxygen (FIO2) 50 12/22/23 10:26 Height 6 ft 12/22/23 11:45 Weight 75.3 kg 12/22/23 11:45 Telemetry Type Remote Telemetry 12/22/23 12:26 Telemetry Monitoring Started 12/22/23 12:26 Telemetry Heart Rate 78 12/22/23 12:26 Telemetry SPO2 98 12/22/23 12:26 EKG WV Interval 0.16 12/22/23 12: EKG QRS Interval 0.06 12/22/23 12: Telemetry Strip Reading NSR 12/22/23 12:26 Appearance: Positive No Apparent Distress, Alert and Oriented x3 and Thin Skin: Positive Warm HEENT: Positive Normocephalic and PERRLA Neck: Positive Supple and Midline Trachea Chest/Lungs: Positive Symmetrical With Equal Breath Sounds, Rhonci (R lower lobe) and Good Air Movement all 4 Lung [place] Heart: Positive RRR and Pulses Normal GI/: Positive Soft, Nontender, Bowel Sounds Normal and No Distention Musculoskeletal: Positive Not Examined Extremities: Positive Intact Peripheral Pulses, Stable Joints Without Laxity and Good ROM in All Joints Neurological: Positive Sensation Intact, Motor intact, Alert and Other (generalized weakness) Labs This Visit Labs This Visit: Labs This Visit 12/22/23 12/22/23 12/22/23 06:45 06:52 07:11 WBC 13.97 H RBC 4.98 Hgb 14.9 Hct 45.2 MCV 90.8 MCH 29.9 MCHC 33.0 RDW Coeff of Nixon 13.0 Plt Count 141 Immature Gran % (Auto) 0.4 Neut % (Auto) 74.9 Lymph % (Auto) 8.3 L [place] % (Auto) 16.2 H Eos % (Auto) 0.0 Baso % (Auto) 0.2 Neut # (Auto) 10.5 H Lymph # (Auto) 1.2 [place] # (Auto) 2.3 H Eos # (Auto) 0.0 Baso # (Auto) 0.0 Immature Gran # (Auto) 0.1 PT 10.6 INR 1.02 APTT 31.5 Puncture Site Base Excess O2 Saturation ABG pH ABG pCO2 ABG pO2 ABG HCO3 ABG Total CO2 Dean Test Hemoglobin Oxyhemoglobin Carboxyhemoglobin Total Hemoglobin FiO2 % Sodium 131.1 L Potassium 4.22 Chloride 98.1 Carbon Dioxide 22.1 Anion Gap 15.12 BUN 25.4 H Creatinine 1.10 Estimated GFR (MDRD) 64.00 BUN/Creatinine Ratio 23.09 Glucose 143.4 H Lactic Acid 1.44 Calcium 8.97 Magnesium 1.87 Total Bilirubin 0.80 AST 55.0 ALT 28.0 Alkaline Phosphatase 47.5 L Troponin I < 0.012 NT-Pro-B Natriuret Pep 517 H Total Protein 7.55 Albumin 4.55 Globulin 3.00 Albumin/Globulin Ratio 1.51 D-Dimer 742.39 H Urine Color Urine Clarity Urine pH Ur Specific Dorothy Urine Protein Urine Glucose (UA) Urine Ketones Urine Blood Urine Nitrite Urine Bilirubin Urine Urobilinogen Ur Leukocyte Esterase Urine Microscopic RBC Urine Microscopic WBC Ur Squamous Epith Cells Urine Bacteria Hyaline Casts Fine Granular Casts Urine Mucus Influ A Molecular Assay Negative by naat Influ B Molecular Assay Negative by naat SARS CoV-2 RNA Rapid ABILIO Positive H 12/22/23 12/22/23 07:27 08:10 WBC RBC Hgb Hct MCV MCH MCHC RDW Coeff of Nixon Plt Count Immature Gran % (Auto) Neut % (Auto) Lymph % (Auto) [place] % (Auto) Eos % (Auto) Baso % (Auto) Neut # (Auto) Lymph # (Auto) [place] # (Auto) Eos # (Auto) Baso # (Auto) Immature Gran # (Auto) PT INR APTT Puncture Site R rad Base Excess -1.2 O2 Saturation 91.6 L ABG pH 7.49 H ABG pCO2 29.0 L ABG pO2 57.0 L* ABG HCO3 22.1 ABG Total CO2 23.0 Dean Test Pos Hemoglobin 1.5 Oxyhemoglobin 92.6 L Carboxyhemoglobin 2.1 H Total Hemoglobin 14.4 FiO2 % 21.0 Sodium Potassium Chloride Carbon Dioxide Anion Gap BUN Creatinine Estimated GFR (MDRD) BUN/Creatinine Ratio Glucose Lactic Acid Calcium Magnesium Total Bilirubin AST ALT Alkaline Phosphatase Troponin I NT-Pro-B Natriuret Pep Total Protein Albumin Globulin Albumin/Globulin Ratio D-Dimer Urine Color Yellow Urine Clarity Clear Urine pH 5.5 Ur Specific Dorothy 1.025 Urine Protein Trace H Urine Glucose (UA) Negative Urine Ketones Trace H Urine Blood Trace-intact H Urine Nitrite Negative Urine Bilirubin Negative Urine Urobilinogen 0.2 Ur Leukocyte Esterase Negative Urine Microscopic RBC 10-20 Urine Microscopic WBC 5-10 Ur Squamous Epith Cells 0-2 Urine Bacteria 2+ Hyaline Casts 2-5 Fine Granular Casts 2-5 Urine Mucus 2+ Influ A Molecular Assay Influ B Molecular Assay SARS CoV-2 RNA Rapid ABILIO Microbiology This Visit 12/22/23 06:45 Throat Group A Strep Molecular Assay - Final Imaging Imaging: EXAM: CT ANGIOGRAM CHEST. HISTORY: Dyspnea. Elevated D-dimer. Difficulty swallowing. COMPARISON: None. TECHNIQUE: Multiple axial images of the chest were obtained following intravenous administration of 100 mL Omnipaque 350, low osmolar. Images were reformatted in the sagittal and coronal plane. 3-D and maximum intensity projection reformatted images were created on an independent workstation. FINDINGS: There is no pulmonary arterial filling defect. Heart is at the upper limits normal in size. Coronary artery and aortic calcifications present but there is no aortic dissection. There are calcified and noncalcified mediastinal and hilar lymph nodes. The largest noncalcified lymph node measures 1.3 cm short axis subcarinal region series 7 image 103 1.6 cm right hilum image 111. There is debris within the bronchus intermedius extending into right lower lobe branches with some distal consolidation in the posterior basal right lower lobe. Mild dependent ground-glass opacities present in the right middle lobe. Calcified granulomatous changes noted. There is no pleural effusion or pneumothorax. No focal esophageal abnormality identified. There is a small hiatal hernia. Appears to severe left hydronephrosis which is incompletely imaged. The gallbladder is absent. Degenerative changes present in the spine. IMPRESSION: 1. No pulmonary embolus. 2. Debris in the right bronchus intermedius and right lower lobe bronchi with right lower lobe posterobasal atelectasis or pneumonia. Correlate for aspiration. 3. Mediastinal and hilar lymphadenopathy which could be due to #2 above. Follow-up recommended. 4. Atherosclerosis. 5. Suspect severe left hydronephrosis. Dedicated abdominal imaging is recommended. Review Statement Review Statement: I have independently reviewed and interpreted the labs/EKGs/imaging that were ordered by the ER provider. I have reviewed all outside records that are available currently in our EMR including imaging/notes/labs from previous visits. Plan Plan: 1. Acute Hypoxic Respiratory Failure in setting of Covid-19 and CAP - wean oxygen as tolerated, steroids, nebs 2. Covid-19 - remdesivir loading dose and daily thereafter, due to co- morbidities and age patient would benefit from at least 3 days, steroids, nebs 3. R lower lobe pneumonia - levaquin IVPB daily, steroids, nebs 4. Hypertension - chronic, stable, continue home medications 5. DM2 - chronic, holding oral agents, ada diet, accuchecks qid with ssi DVT Prophylaxis: Lovenox Time Spent: Greater than 80 minutes spent with patient, 50% of the time spent with this patient was devoted to counseling and coordination of care. [facility] minutes spent discussing advance care planning. Disposition: Admit to: Med/surg Inpatient due to length of stay >48 hours DNR Discussed Plan of Care with Dr. Dave Lowe. Medications Medication Orders: Medications Ordered Category Date Time Status Acetaminophen [Tylenol] Meds 12/22/23 13:06 Active 650 mg PO Q4H PRN Albuterol Sulfate 0.083% Neb [Albuterol 0.083% Neb] Meds 12/22/23 13:08 Active 2.5 mg NEB RTQ4H PRN Amlodipine Besylate [Norvasc] Meds 12/23/23 09:00 Active 10 mg PO DAILY Aspirin [Aspirin Chewable] Meds 12/23/23 07:30 Active 81 mg PO DAILYWM2 Benazepril HCl [Lotensin] Meds 12/23/23 09:00 Active 20 mg PO DAILY Dexamethasone Sod Phosphate [Decadron] Meds 12/23/23 09:00 Active 6 mg IVP DAILY Enoxaparin Sodium [Lovenox] Meds 12/23/23 09:00 Active 40 mg SUBCUT DAILY Insulin Regular, Human [Humulin R (10Ml)] Meds 12/22/23 13:10 Active See Protocol SUBCUT PRN PRN Ipratropium/Albuterol Neb [Duoneb] Meds 12/22/23 14:00 Active 3 ml NEB RTQ4H Levofloxacin/D5w [Levaquin 750 mg/150 ml D5w] Meds 12/23/23 09:00 Active 750 mg in 150 ml IV DAILY Levothyroxine Sodium [Synthroid] Meds 12/23/23 06:00 Active 75 mcg PO QDAC2 [place]-3/Dha/Epa/Fish Oil [[place]-3 Fish Oil] Meds 12/23/23 09:00 Active 1,000 mg PO DAILY Pravastatin Sodium [Pravachol] Meds 12/22/23 21:00 Active 40 mg PO BEDTIME Remdesivir [Veklury] 100 mg Meds 12/23/23 09:00 Active 0.9 % Sodium Chloride [Sodium Chloride 100Ml] 100 ml IV DAILY
[2023-12-22] MEDS: VEKLURY 200 MG in SODIUM CHLORIDE 250 ML IV ONE (16:56)
[2023-12-22] MEDS: HUMULIN R (10ML) SUBCUT PRN (18:09)
[2023-12-22] MEDS: PRAVACHOL PO SCH (21:33)
[2023-12-23] MEDS: SYNTHROID PO SCH (06:11)
[2023-12-23 06:38] LABS: BASOPHILS % (AUTO) 0.2 % (0.0-3.0); EOSINOPHILS % (AUTO) 0.1 % (0.0-7.0); HEMOGLOBIN 13.1 g/dl (14.0-18.0); IMMATURE GRANULOCYTE # (AUTO) 0.1 (0.0-1.0); IMMATURE GRANULOCYTE % (AUTO) 0.4 % (0.0-5.0); LYMPHOCYTES # (AUTO) 1.8 K/uL (0.60-3.4); LYMPHOCYTES % (AUTO) 13.5 (10.0-50.0); MEAN CORPUSCULAR HEMOGLOBIN 29.8 pg (27.0-31.0); MEAN CORPUSCULAR HGB CONC 33.4 (31.8-35.4); MEAN CORPUSCULAR VOLUME 89.3 fl (80.0-94.0); MONOCYTES # (AUTO) 1.3 K/uL (0.4-2.0); MONOCYTES % (AUTO) 9.6 (0-10); NEUTROPHILS # (AUTO) 10.1 K/ul (2.0-6.9); NEUTROPHILS % (AUTO) 76.2 % (42.2-75.2); PLATELET COUNT 142 10^3/uL (140-440); RDW COEFFICIENT OF VARIATION 13.1 % (11.6-14.8); RED BLOOD COUNT 4.39 10^6/ul (4.70-6.10); WHITE BLOOD COUNT 13.29 K/ul (4.2-10.2)
[2023-12-23 06:41] LABS: HEMATOCRIT 39.2 % (42.0-52.0)
[2023-12-23 06:42] LABS: ALANINE AMINOTRANSFERASE 24.4 U/L (0-50); ALBUMIN 3.65 g/dL (3.5-5.0); ALKALINE PHOSPHATASE 41.6 U/L (56-119); ASPARTATE AMINO TRANSFERASE 39.6 U/L (17-59); BILIRUBIN,TOTAL 0.45 mg/dL (0.2-1.3); CALCIUM 8.59 mg/dL (8.4-10.2); CARBON DIOXIDE 25.8 mmol/L (22-30.0); CHLORIDE 101.5 mmol/L (98-107); CREATININE 0.96 mg/dL (0.60-1.10); GLUCOSE 117.1 mg/dL (74-106); POTASSIUM 3.94 mmol/L (3.5-5.1); SODIUM 134.1 mmol/L (134.5-145); TOTAL PROTEIN 6.42 g/dL (6.3-8.2)
[2023-12-23] MEDS: ASPIRIN CHEWABLE PO SCH (08:25)
[2023-12-23] MEDS ORDERED: AMLODIPINE BENAZEPRIL PO SCH (09:00)
[2023-12-23] MEDS: LOTENSIN PO SCH (09:05)
[2023-12-23] MEDS: OMEGA-3 FISH OIL PO SCH (09:05)
[2023-12-23] MEDS: NORVASC PO SCH (09:06)
[2023-12-23] MEDS: DECADRON IVP SCH (09:06)
[2023-12-23] MEDS: LOVENOX SUBCUT SCH (09:09)
[2023-12-23] MEDS: LEVAQUIN 750 MG/150 ML D5W 750 MG/150 ML BAG IV SCH (09:09)
--- NOTE | 2023-12-23 11:27 | PCM.PROG ---
Date/Time Seen Date Seen by Provider: 12/23/23 Time Seen by Provider: 09:15 Provider [facility] Chief Complaint Chief Complaint: COVID PNEUMONIA, UTI Subjective Subjective: Feeling better today. Still on RA. Objective Appearance: Positive No Apparent Distress and Alert and Oriented x3 Chest/Lungs: Positive Symmetrical With Equal Breath Sounds, Clear to Auscultation Bilaterally and Good Air Movement all 4 Lung [place] Heart: Positive RRR and Pulses Normal GI/: Positive Soft, Nontender, Bowel Sounds Normal and No Distention Musculoskeletal: Positive Not Examined Neurological: Positive Sensation Intact, Motor intact, Alert and Oriented Vital Signs Vital Signs: Vital Signs: Last 24 Hours 12/22/23 11:45 12/22/23 11:45 12/22/23 12:26 Temperature 98.3 F Temperature Source Oral Pulse Rate 79 Respiratory Rate 16 18 Blood Pressure Blood Pressure Mean Blood Pressure Left Arm 123/69 Blood Pressure Location Blood Pressure Position Sitting O2 Sat by Pulse Oximetry 97 Oxygen Delivery Method Venturi Mask Venturi Mask Oxygen Flow Rate Height 6 ft Weight 75.3 kg Telemetry Type Remote Telemetry Telemetry Monitoring Started Telemetry Heart Rate 78 Telemetry SPO2 98 EKG FL Interval 0.16 EKG QRS Interval 0.06 Telemetry Strip Reading NSR 12/22/23 14:00 12/22/23 14:32 12/22/23 16:45 Temperature 99 F Temperature Source Temporal Artery Scan Pulse Rate 81 Respiratory Rate 17 Blood Pressure 119/78 116/64 Blood Pressure Mean 91 81 Blood Pressure Left Arm Blood Pressure Location Left Arm Left Arm Blood Pressure Position Sitting Sitting O2 Sat by Pulse Oximetry 98 98 Oxygen Delivery Method Nasal Cannula Nasal Cannula Nasal Cannula Oxygen Flow Rate 4 4 Height Weight Telemetry Type Telemetry Monitoring Telemetry Heart Rate Telemetry SPO2 EKG FL Interval EKG QRS Interval Telemetry Strip Reading 12/22/23 17:20 12/22/23 18:00 12/22/23 19:00 Temperature 98.9 F Temperature Source Temporal Artery Scan Pulse Rate 78 Respiratory Rate 16 Blood Pressure 130/64 126/64 Blood Pressure Mean 86 84 Blood Pressure Left Arm Blood Pressure Location Left Arm Blood Pressure Position Sitting O2 Sat by Pulse Oximetry 97 98 Oxygen Delivery Method Nasal Cannula Nasal Cannula Oxygen Flow Rate 4 4 Height Weight Telemetry Type Remote Telemetry Telemetry Monitoring Continues Telemetry Heart Rate 78 Telemetry SPO2 97 EKG FL Interval 0.19 EKG QRS Interval 0.07 Telemetry Strip Reading SR 12/22/23 20:00 12/22/23 20:20 12/22/23 21:12 Temperature 97.7 F Temperature Source Oral Pulse Rate 70 Respiratory Rate 18 18 Blood Pressure 114/62 Blood Pressure Mean 79 Blood Pressure Left Arm Blood Pressure Location Left Arm Blood Pressure Position Supine O2 Sat by Pulse Oximetry 97 95 Oxygen Delivery Method Nasal Cannula Nasal Cannula Nasal Cannula Oxygen Flow Rate 4 4 4 Height Weight Telemetry Type Telemetry Monitoring Telemetry Heart Rate Telemetry SPO2 EKG FL Interval EKG QRS Interval Telemetry Strip Reading 12/23/23 01:00 12/23/23 02:00 12/23/23 05:29 Temperature 97.6 F Temperature Source Oral Pulse Rate 67 67 Respiratory Rate 18 18 Blood Pressure 120/67 Blood Pressure Mean 84 Blood Pressure Left Arm Blood Pressure Location Left Arm Blood Pressure Position Supine O2 Sat by Pulse Oximetry 96 97 Oxygen Delivery Method Room Air Room Air Oxygen Flow Rate Height Weight Telemetry Type Remote Telemetry Telemetry Monitoring Continues Telemetry Heart Rate 62 Telemetry SPO2 96 EKG FL Interval 0.24 H EKG QRS Interval 0.06 Telemetry Strip Reading SR WITH 1ST DEGREE AVB 12/23/23 05:56 12/23/23 07:00 12/23/23 08:00 Temperature Temperature Source Pulse Rate Respiratory Rate 16 Blood Pressure Blood Pressure Mean Blood Pressure Left Arm Blood Pressure Location Blood Pressure Position O2 Sat by Pulse Oximetry 95 Oxygen Delivery Method Room Air Room Air Oxygen Flow Rate Height Weight Telemetry Type Remote Telemetry Telemetry Monitoring Continues Telemetry Heart Rate 63 Telemetry SPO2 EKG FL Interval 0.16 EKG QRS Interval 0.08 Telemetry Strip Reading sr 12/23/23 09:53 12/23/23 10:00 Temperature 97.7 F Temperature Source Temporal Artery Scan Pulse Rate 78 Respiratory Rate 15 Blood Pressure 130/62 Blood Pressure Mean 84 Blood Pressure Left Arm Blood Pressure Location Left Arm Blood Pressure Position Sitting O2 Sat by Pulse Oximetry 96 97 Oxygen Delivery Method Nasal Cannula Room Air Oxygen Flow Rate 2 Height Weight Telemetry Type Telemetry Monitoring Telemetry Heart Rate Telemetry SPO2 EKG FL Interval EKG QRS Interval Telemetry Strip Reading Lab Results Lab Results: Lab Results: Last 24 Hours 12/23/23 06:01 WBC 13.29 H RBC 4.39 L Hgb 13.1 L Hct 39.2 L D MCV 89.3 MCH 29.8 MCHC 33.4 RDW Coeff of Nixon 13.1 Plt Count 142 Immature Gran % (Auto) 0.4 Neut % (Auto) 76.2 H Lymph % (Auto) 13.5 [place] % (Auto) 9.6 Eos % (Auto) 0.1 Baso % (Auto) 0.2 Neut # (Auto) 10.1 H Lymph # (Auto) 1.8 [place] # (Auto) 1.3 Eos # (Auto) 0.0 Baso # (Auto) 0.0 Immature Gran # (Auto) 0.1 PT 10.0 INR 0.96 Sodium 134.1 L Potassium 3.94 Chloride 101.5 Carbon Dioxide 25.8 Anion Gap 10.74 BUN 26.0 H Creatinine 0.96 Estimated GFR (MDRD) 75.00 BUN/Creatinine Ratio 27.08 Glucose 117.1 H Calcium 8.59 Total Bilirubin 0.45 AST 39.6 ALT 24.4 Alkaline Phosphatase 41.6 L Total Protein 6.42 Albumin 3.65 Globulin 2.77 Albumin/Globulin Ratio 1.31 Additional Comments Additional Comments: I have independently reviewed and interpreted the labs/EKGs/imaging ordered during this hospital stay. I have reviewed outside records that are available in our EMR that pertain to medical stay including imaging/notes/labs from previous visits. Active Medications Active Medications: Medications Generic Name Dose Route Start Last Admin Trade Name Freq PRN Reason Stop Dose Admin Acetaminophen 650 mg 12/22/23 13:06 Acetaminophen 325 Mg Tablet PO Q4H PRN Mild Pain Albuterol Sulfate 2.5 mg 12/22/23 13:08 Albuterol Sulfate 0.083% Vial.Neb NEB RTQ4H PRN Wheezing Albuterol/Ipratropium 3 ml 12/22/23 14:00 12/23/23 10:16 Ipratropium/Albuterol Vial.Neb NEB 3 ml RTQ4H NIRMAL Administration Amlodipine Besylate 10 mg 12/23/23 09:00 12/23/23 09:06 Amlodipine Besylate 5 Mg Tablet PO 10 mg DAILY NIRMAL Administration Aspirin 81 mg 12/23/23 07:30 12/23/23 08:25 Aspirin 81 Mg Tab.Chew PO 81 mg DAILYWM2 NIRMAL Administration Benazepril HCl 20 mg 12/23/23 09:00 12/23/23 09:05 Benazepril Hcl 10 Mg Tablet PO 20 mg DAILY NIRMAL Administration Dexamethasone Sodium Phosphate 6 mg 12/23/23 09:00 12/23/23 09:06 Dexamethasone Sod Phos 10 Mg/Ml Inj IVP 6 mg DAILY NIRMAL Administration Enoxaparin Sodium 40 mg 12/23/23 09:00 12/23/23 09:09 Enoxaparin Sodium 40 Mg/0.4 Ml Syr SUBCUT 40 mg DAILY NIRMAL Administration Fish Oil 1,000 mg 12/23/23 09:00 12/23/23 09:05 [place]-3/Dha/Epa/Fish Oil 1,000 Mg Capsule PO 1,000 mg DAILY NIRMAL Administration Levofloxacin/Dextrose 750 mg in 150 mls @ 100 mls/hr 12/23/23 09:00 12/23/23 09:09 Levaquin 750 Mg/150 Ml D5w IV 12/26/23 08:59 100 mls/hr DAILY NIRMAL Administration Remdesivir 100 mg/ Sodium 100 mls @ 200 mls/hr 12/23/23 09:00 Chloride IV 12/26/23 09:29 DAILY [facility] Insulin Human Regular 0 unit 12/22/23 13:10 12/22/23 21:35 Insulin Regular, Human 100 Unit/Ml (10ml) Vial SUBCUT 4 unit PRN PRN Administration Hyperglycemia Protocol Levothyroxine Sodium 75 mcg 12/23/23 06:00 12/23/23 06:11 Levothyroxine Sodium 75 Mcg Tablet PO 75 mcg QDAC2 NIRMAL Administration Pravastatin Sodium 40 mg 12/22/23 21:00 12/22/23 21:33 Pravastatin Sodium 40 Mg Tablet PO 40 mg BEDTIME NIRMAL Administration Sodium Chloride 1 syr 12/22/23 21:00 12/23/23 06:11 0.9% Sodium Chloride 10 Ml Disp.Syrin IVF 1 syr Q8HR NIRMAL Administration Plan Plan: 1. Acute Hypoxic Respiratory Failure in setting of Covid-19 and CAP - Resolved, on RA, steroids, nebs 2. Covid-19 - remdesivir loading dose and daily thereafter, due to co- morbidities and age patient would benefit from at least 3 days, steroids, nebs 3. R lower lobe pneumonia - levaquin IVPB daily, steroids, nebs 4. Hypertension - chronic, stable, continue home medications 5. DM2 - chronic, holding oral agents, ada diet, accuchecks qid with ssi DVT Prophylaxis: Denissenox Review Statement Review Statement: I have personally discussed and reviewed the patient's visit/currently labs/imaging/decision making with Dr. Lowe, my supervising attending. Greater that 50 minutes spent with patient, 50% of the time spent with this patient was devoted to counseling and coordination of care.
[2023-12-23] MEDS: VEKLURY 100 MG in SODIUM CHLORIDE 100ML 100 ML IV SCH (11:54)
[2023-12-23] MEDS: VEKLURY 200 MG in SODIUM CHLORIDE 250 ML IV ONE (11:55)
[2023-12-24 05:14] LABS: BASOPHILS % (AUTO) 0.1 % (0.0-3.0); EOSINOPHILS % (AUTO) 0.1 % (0.0-7.0); HEMOGLOBIN 13.1 g/dl (14.0-18.0); IMMATURE GRANULOCYTE # (AUTO) 0.1 (0.0-1.0); IMMATURE GRANULOCYTE % (AUTO) 0.5 % (0.0-5.0); LYMPHOCYTES # (AUTO) 1.3 K/uL (0.60-3.4); MEAN CORPUSCULAR HEMOGLOBIN 29.8 pg (27.0-31.0); MEAN CORPUSCULAR HGB CONC 33.6 (31.8-35.4); MEAN CORPUSCULAR VOLUME 88.8 fl (80.0-94.0); MONOCYTES # (AUTO) 0.9 K/uL (0.4-2.0); MONOCYTES % (AUTO) 7.4 (0-10); NEUTROPHILS # (AUTO) 9.8 K/ul (2.0-6.9); NEUTROPHILS % (AUTO) 80.9 % (42.2-75.2); PLATELET COUNT 146 10^3/uL (140-440); RED BLOOD COUNT 4.39 10^6/ul (4.70-6.10); WHITE BLOOD COUNT 12.11 K/ul (4.2-10.2)
[2023-12-24 05:26] LABS: ALANINE AMINOTRANSFERASE 33.1 U/L (0-50); ALBUMIN 3.55 g/dL (3.5-5.0); ALKALINE PHOSPHATASE 60.6 U/L (56-119); ASPARTATE AMINO TRANSFERASE 55.3 U/L (17-59); BILIRUBIN,TOTAL 0.34 mg/dL (0.2-1.3); BLOOD UREA NITROGEN 23.3 mg/dL (9-20); CALCIUM 8.48 mg/dL (8.4-10.2); CARBON DIOXIDE 25.5 mmol/L (22-30.0); CHLORIDE 101.8 mmol/L (98-107); CREATININE 0.85 mg/dL (0.60-1.10); GLUCOSE 152.3 mg/dL (74-106); POTASSIUM 3.93 mmol/L (3.5-5.1); TOTAL PROTEIN 6.3 g/dL (6.3-8.2)
[2023-12-24 05:33] LABS: PROTHROMBIN TIME 9.9 SEC (9.3-11.0)
[2023-12-24] MEDS: VEKLURY 100 MG in SODIUM CHLORIDE 100ML 100 ML IV SCH (08:43)
[2023-12-24 09:02] VITALS: RESP 14
--- NOTE | 2023-12-24 09:51 | DCSUM ---
Admission Date Admission Date: 12/22/23 Discharge Date Discharge Date: 12/24/23 Admission Diagnosis Admission Diagnosis: 1. Acute Hypoxic Respiratory Failure in setting of Covid-19 and CAP 2. Covid-19 3. R lower lobe pneumonia 4. Hypertension 5. DM2 Discharge Diagnosis Discharge Diagnosis: 1. Acute Hypoxic Respiratory Failure in setting of Covid-19 and CAP - Resolved 2. Covid-19 - Improving 3. R lower lobe pneumonia - Improving 4. Hypertension - Chronic, stable 5. DM2 - Chronic, stable Hospital Provider Hospital Provider: ELAINE COHEN, [facility] Phys[facility] Primary Care Physician: VALENTE EDWARDS Summary of History and Physical Summary of History and Physical: 83 yo male presented to the ER with weakness, sore throat, and fatigue that started on Tuesday and has progressively worsened. Patient reports that this morning when he woke up he knew something wasn't right and he needed to get checked out. Denies any fever that he is aware of. Reports being very fatigued and intermittent sore throat. Denies any difficulty breathing, chest or back pain, dizziness, n/v/d. Patient was found to be covid-19 positive in addition to a UTI and R lower lobe pneumonia. CT questionable for aspiration. Patient denied any choking episodes or significant difficulty swallowing. O2 sat was dropping significantly and required venturi mask up to 10L of oxygen in the ER. On arrival to the floor he was down to 6L. Admitted to med/surg inpatient. Hospital Course Subjective: Patient was treated for Covid with 3 days of remdesivir, steroids, and nebs. Pneumonia was treated with levaquin. Oxygen was able to be weaned off by yesterday am. Has no longer required oxygen. States he is feeling much better at this time. No changes made to home medications. Vital signs and labs stable. D/c home with rest of course of levaquin and steroids. Follow-up with PCP as scheduled. Appearance: Pleasant, No Apparent Distress, Alert and Well-appearing HEENT: MMM and Supple CVS: No Murmur, No Rubs and No Gallop Abdomen: Soft, Non-Tender and No Distention Respiratory: No Dyspnea Extremities: No Edema Vital Signs: Most Recent Vital Signs Temperature 97.5 F L 12/24/23 09:01 Temperature Source Temporal Artery Scan 12/24/23 09:01 Temperature Source Temporal Artery Scan 12/22/23 09:07 Pulse Rate 76 12/24/23 09:01 Respiratory Rate 14 12/24/23 09:01 Blood Pressure 150/79 H 12/24/23 09:01 Blood Pressure Mean 102 12/24/23 09:01 Blood Pressure Left Arm 123/69 12/22/23 11:45 Blood Pressure Location Left Arm 12/24/23 09:01 Blood Pressure Position Sitting 12/24/23 09:01 O2 Sat by Pulse Oximetry 99 12/24/23 09:01 Oxygen Delivery Method Room Air 12/24/23 09:01 Oxygen Flow Rate 2 12/23/23 18:00 Fraction of Inspired Oxygen (FIO2) 50 12/22/23 10:26 Height 6 ft 12/22/23 11:45 Weight 75.3 kg 12/22/23 11:45 Telemetry Type Remote Telemetry 12/24/23 07:00 Telemetry Monitoring Continues 12/24/23 00:52 Telemetry Heart Rate 78 12/24/23 07:00 Telemetry SPO2 95 12/24/23 00:52 EKG MN Interval 0.15 12/24/23 07:00 EKG QRS Interval 0.06 12/24/23 07:00 Telemetry Strip Reading SR 12/24/23 07:00 Imaging: EXAM: CT ANGIOGRAM CHEST. FINDINGS: There is no pulmonary arterial filling defect. Heart is at the upper limits normal in size. Coronary artery and aortic calcifications present but there is no aortic dissection. There are calcified and noncalcified mediastinal and hilar lymph nodes. The largest noncalcified lymph node measures 1.3 cm short axis subcarinal region series 7 image 103 1.6 cm right hilum image 111. There is debris within the bronchus intermedius extending into right lower lobe branches with some distal consolidation in the posterior basal right lower lobe. Mild dependent ground-glass opacities present in the right middle lobe. Calcified granulomatous changes noted. There is no pleural effusion or pneumothorax. No focal esophageal abnormality identified. There is a small hiatal hernia. Appears to severe left hydronephrosis which is incompletely imaged. The gallbladder is absent. Degenerative changes present in the spine. IMPRESSION: 1. No pulmonary embolus. 2. Debris in the right bronchus intermedius and right lower lobe bronchi with right lower lobe posterobasal atelectasis or pneumonia. Correlate for aspiration. 3. Mediastinal and hilar lymphadenopathy which could be due to #2 above. Follow-up recommended. 4. Atherosclerosis. 5. Suspect severe left hydronephrosis. Dedicated abdominal imaging is recommended. EXAM: CHEST RADIOGRAPH FINDINGS: Calcified granuloma of the left mid lung. No pulmonary infiltrate is identified. No pleural effusion or pneumothorax is seen. Heart size is normal. No acute displaced rib fractures are identified. IMPRESSION: 1. No acute findings in the chest. Lab Results Last 24 Hours: 12/24/23 05:07 WBC 12.11 H RBC 4.39 L Hgb 13.1 L Hct 39.0 L MCV 88.8 MCH 29.8 MCHC 33.6 RDW Coeff of Nixon 13.0 Plt Count 146 Immature Gran % (Auto) 0.5 Neut % (Auto) 80.9 H Lymph % (Auto) 11.0 [place] % (Auto) 7.4 Eos % (Auto) 0.1 Baso % (Auto) 0.1 Neut # (Auto) 9.8 H Lymph # (Auto) 1.3 [place] # (Auto) 0.9 Eos # (Auto) 0.0 Baso # (Auto) 0.0 Immature Gran # (Auto) 0.1 PT 9.9 INR 0.95 Sodium 133.0 L Potassium 3.93 Chloride 101.8 Carbon Dioxide 25.5 Anion Gap 9.63 BUN 23.3 H Creatinine 0.85 Estimated GFR (MDRD) 86.00 BUN/Creatinine Ratio 27.41 Glucose 152.3 H Calcium 8.48 Total Bilirubin 0.34 AST 55.3 ALT 33.1 Alkaline Phosphatase 60.6 Total Protein 6.30 Albumin 3.55 Globulin 2.75 Albumin/Globulin Ratio 1.29 Discharge Instructions Discharge Planning: Discharge Planning > 40 minutes If patient is discharged with left ventricular systolic dysfunction: NA Discharged with a beta milana? [] If no, why not? [] Discharged with an lilli/arb? [] If no, why not? [] Diagnosis: Covid-19, Pneumonia Diet: Diabetic Activity: as tolerated Follow-up with PCP as scheduled. Medications Levaquin 750 mg daily x 2 more days for pneumonia Prednisone 5 mg daily x 2 more days Discharge Medications: Medications at Discharge (Home Meds & RX) amlodipine 10 mg-benazepril 20 mg capsule 1 ea PO DAILY 12/31/16 levothyroxine 75 mcg tablet (Synthroid) 75 mcg PO DAILY 12/31/16 pravastatin 40 mg tablet 40 mg PO BEDTIME 12/31/16 aspirin 81 mg chewable tablet 81 mg PO DAILY 04/03/19 multivitamin 5 ml PO DAILY 04/03/19 omega 8-flm-aao-fish oil 1,000 mg (120 mg-180 mg) capsule (Fish Oil) 1 cap PO DAILY 04/03/19 metformin 500 mg tablet 500 mg PO 2XD 12/22/23 Discharge Plan Discharge Discharge Orders: Discharge Patient (ONCE); Ordered 12/24/23 Ordered By: PRETTY GUERRERO Activity Restrictions/Additional Instructions: Diagnosis: Covid-19, Pneumonia Diet: Diabetic Activity: as tolerated Follow-up with PCP as scheduled. Medications Levaquin 750 mg daily x 2 more days for pneumonia Prednisone 5 mg daily x 2 more days Instructions: Community Acquired Pneumonia (GEN), COVID-19 (Coronavirus Disease 2019) (GEN), Face Coverings (Masks) and COVID-19 (GEN) Patient Disposition: HOME WITH FAMILY CARE Prescriptions: New albuterol sulfate 90 mcg/actuation aerosol powdr breath activated 2 inh inhalation Q4-6H PRN (Reason: shortness of breath or wheezing) Qty: 1 0RF levofloxacin 750 mg tablet 750 mg PO DAILY Qty: 2 0RF prednisone 5 mg tablet 5 mg PO DAILY Qty: 2 0RF Continued pravastatin 40 MG tablet 40 mg PO BEDTIME levothyroxine [Synthroid] 75 MCG tablet 75 mcg PO DAILY amlodipine-benazepril 1 EACH capsule 1 ea PO DAILY multivitamin Liquid 5 ml PO DAILY aspirin 81 mg Tablet,Chewable 81 mg PO DAILY omega 8-xst-mst-fish oil [Fish Oil] 1,000 mg (120 mg-180 mg) Capsule 1 cap PO DAILY metformin 500 mg tablet 500 mg PO 2XD Did you review [place] [employer]ER for ALL controlled substances?: No Discussed opioids are addictive and Narcan is available by prescription or from pharmacy.: No Condition: Stable Referrals: CRISTIANA HEBERT MD [STAFF PHYSICIAN] - 01/02/24 9:15 am
[2023-12-24 10:05] VITALS: BP 146/80; PULSE 75; TEMP 97.8
== END 2023-12-24 13:00 | disposition home or self-care (01) | DRG 177 ==
LOC: ED 06:40 → MEDSURG B 11:00
PROVIDERS: ADMIT Hospitalist; ATTEND Nurse Practitioner Family
DX: E11.9 Type 2 diabetes mellitus without complications; J12.82 Pneumonia due to coronavirus disease 2019; Z87.891 Personal history of nicotine dependence; J96.01 Acute respiratory failure with hypoxia; I10 Essential (primary) hypertension; N30.01 Acute cystitis with hematuria; U07.1 COVID-19; J02.9 Acute pharyngitis, unspecified